=== PATIENT | male | born 1985 | race Caucasian/White ===

== ENCOUNTER 2024-02-24 10:22 | Emergency (ER) | payer MEDICAID ==
[~2024-02-24] VITALS: Ht 160 cm; Wt 64.0 kg
[2024-02-24 10:25] VITALS: O2SAT 99
[2024-02-24] MEDS: TETANUS, DIPHTHERIA, PERTUSSIS VAC/PF 0.5ML (>10YR OLD) IM ONE (13:30)
[2024-02-24] MEDS: LIDOCAINE HCL/PF 1% 10 MG/ML 5ML VIAL INFIL ONE (16:08)
[2024-02-24] MEDS: BACITRACIN ZINC OINT UDPKT TOP ONE (16:08)
[2024-02-24 16:14] VITALS: BP 128/72; PULSE 79; RESP 18; TEMP 36.89184; O2SAT 98
== END 2024-02-24 16:22 | disposition home or self-care (01) ==
LOC: ER 10:38
DX: S01.81XA Laceration without foreign body of other part of head, initial encounter (principal); Y08.89XA Assault by other specified means, initial encounter; Y93.89 Activity, other specified; Y92.89 Other specified places as the place of occurrence of the external cause; Y99.8 Other external cause status; Z23 Encounter for immunization
CPT/HCPCS: 70450; 90715; 12013; 90471; 99285; J3490; Z7610 ×2

== ENCOUNTER 2024-03-01 11:48 | Emergency (ER) | payer MEDICAID ==
[~2024-03-01] VITALS: Ht 157.5 cm; Wt 81.0 kg
[2024-03-01 11:57] VITALS: BP 130/78; TEMP 98.3; O2SAT 96
[2024-03-01 11:58] VITALS: PULSE 89; RESP 18; O2SAT 99
== END 2024-03-01 14:09 | disposition home or self-care (01) ==
LOC: ER 11:48
DX: S01.81XD Laceration without foreign body of other part of head, subsequent encounter (principal); X58.XXXD Exposure to other specified factors, subsequent encounter
CPT/HCPCS: 99281